=== PATIENT | female | born 1990 | race Hispanic/Latino ===

== ENCOUNTER 2019-03-28 10:10 | Emergency (ER) | payer SELFPAY ==
[~2019-03-28] VITALS: Ht 165.1 cm; Wt 66.2 kg
[~2019-03-28 10:10] MED LIST: CALNA PO; FOLIC ACID1 MG PO
[2019-03-28] MEDS ORDERED: ZPAK PO (10:20)
[2019-03-28] MEDS ORDERED: IPRATROPIUM BR0.02 % IN (10:21)
[2019-03-28] MEDS ORDERED: DOXYCYC MONO100 M2 PO (12:00)
[2019-03-28] MEDS ORDERED: PREDNISONE50 MG PO (12:00)
[2019-03-28] MEDS ORDERED: PROAIR HFA108 MCG/AC PO (12:00)
[2019-03-28 12:08] VITALS: BP 113/73
== END 2019-03-28 12:08 | disposition home or self-care (01) | DRG 153 ==
LOC: ED 10:10
DX: J06.9 Acute upper respiratory infection, unspecified (principal); J45.901 Unspecified asthma with (acute) exacerbation